=== PATIENT | female | born 1985 | race African-American/Black ===

== ENCOUNTER 2017-07-16 22:44 | Emergency (ER) | payer BC ==
[~2017-07-16] VITALS: Ht 172.7 cm; Wt 95.3 kg
[2017-07-16 22:49] VITALS: BP 128/82
--- NOTE | 2017-07-16 22:57 | NUR ---
PT JOSE L BLS. TAKEN TO BED 7
--- NOTE | 2017-07-16 23:02 | NUR ---
31 Y/O F BIBA W/C/O GEN WEAKNESS, DIZZINESS, NUMBNESS, SLURRING OF SPEECH.EKG DONE ENROUTE NEGATIVE. PT ALERT AND ORIENTED X 4, DENIES CHEST OR FEELING DIZZY AT THE MOMENT.
--- NOTE | 2017-07-16 23:14 | NUR ---
Dr. Woodard evaluating patient at bedside.
[2017-07-16 23:48] LABS: BASOPHILS # (AUTO) 0.3 K/uL (0.00-0.22); BASOPHILS % (AUTO) 2.4 % (0.0-2.0); EOSINOPHILS # (AUTO) 0.1 K/uL (0-0.4); HEMATOCRIT 36.9 % (36-48); HEMOGLOBIN 11.7 g/dL (12.0-16.0); LYMPHOCYTES # (AUTO) 1.2 K/uL (2.5-16.5); LYMPHOCYTES % (AUTO) 11.7 % (20.5-51.1); MEAN CORPUSCULAR HEMOGLOBIN 26 pg (27-31); MEAN CORPUSCULAR HGB CONC 32 g/dL (33-37); MEAN CORPUSCULAR VOLUME 82 fL (80-94); MONOCYTES # (AUTO) 0.7 K/uL (0.8-1.0); MONOCYTES % (AUTO) 6.5 % (1.7-9.3); NEUTROPHILS # (AUTO) 8.3 K/uL (1.8-7.7); NEUTROPHILS % (AUTO) 78.4 % (42.2-75.2); PLATELET COUNT (AUTO) 209 K/uL (140-450); RED BLOOD CELL COUNT(AUTO) 4.52 MIL/uL (4.20-5.40); RED CELL DISTRIBUTION WIDTH 13.3 % (11.6-13.7); WHITE BLOOD COUNT (AUTO) 10.6 K/uL (4.8-10.8)
[2017-07-17 00:03] LABS: ANION GAP 11.2 (8-16); CARBON DIOXIDE 24.8 mmol/L (21-32); CREATININE 0.6 mg/dL (0.6-1.3)
[2017-07-17 00:17] LABS: ALBUMIN 2.7 g/dL (3.4-5.0); THYROID STIMULATING HORMONE 3.23 uIU/mL (0.34-3.74); TOTAL BILIRUBIN 0.2 mg/dL (0.0-1.0)
--- NOTE | 2017-07-17 01:15 | NUR ---
PT RESTING IN BED, VSS. BRIGETTE DOTSON SPEAKING TO PT.
[2017-07-17 01:33] VITALS: BP 111/70
--- NOTE | 2017-07-17 01:33 | NUR ---
Patient discharged with v/s stable. Written and verbal after care instructions given and explained. Patient verbalized understanding. Ambulatory with to car. All questions addressed prior to discharge. Advised to follow up with PMD.
== END 2017-07-17 01:33 | disposition home or self-care (01) ==
LOC: MED 22:44
DX: O26.899 Other specified pregnancy related conditions, unspecified trimester (principal); R42 Dizziness and giddiness; H53.8 Other visual disturbances; Z88.5 Allergy status to narcotic agent; Z91.040 Latex allergy status
CPT/HCPCS: 36415; 80053; 84443; 85025; 99284